=== PATIENT | female | born 1945 | race Caucasian/White ===

== ENCOUNTER 2017-04-15 10:31 | Emergency (ER) | payer MEDICARE, OTHER, MEDICAID ==
[2017-04-15 12:37] LABS: URINE BLOOD (Dip) POC Negative (NEGATIVE); URINE GLUCOSE (Dip) POC Negative (NEGATIVE); URINE KETONES (Dip) POC Negative (NEGATIVE); URINE LEUKOCYTE EST (Dip) POC Negative (NEGATIVE); URINE NITRITE (Dip) POC Negative (NEGATIVE); URINE TOTAL PROTEIN POC Negative (NEGATIVE)
[2017-04-15 12:37] LABS: URINE PH (Dip) POC 5.5 (5.0-8.5)
[2017-04-15 13:00] LABS: ADD UMIC NO; UR ASCORBIC ACID NEGATIVE (NEGATIVE); UR BILIRUBIN (Dip) NEGATIVE (NEGATIVE); UR BLOOD (Dip) NEGATIVE (NEGATIVE); UR CLARITY CLEAR (CLEAR); UR COLOR STRAW (YELLOW); UR GLUCOSE (Dip) NEGATIVE (NEGATIVE); UR KETONES (Dip) NEGATIVE (NEGATIVE); UR LEUKOCYTE ESTERASE (Dip) NEGATIVE Leu/ul (NEGATIVE); UR NITRITE (Dip) NEGATIVE (NEGATIVE); UR SPECIFIC GRAVITY (Dip) 1.009 (1.003-1.030); UR TOTAL PROTEIN (Dip) NEGATIVE (NEGATIVE); UR UROBILINOGEN (Dip) NEGATIVE (NEGATIVE)
== END 2017-04-15 13:25 | disposition home or self-care (01) ==
LOC: FTE 10:31
DX: B37.9 Candidiasis, unspecified (principal)
CPT/HCPCS: 81003; 87086; 99284

== ENCOUNTER 2017-10-04 13:29 | Emergency (ER) | payer MEDICARE, OTHER ==
[2017-10-04] MEDS: ACETAMINOPHEN 500 MG TAB PO (14:46)
[2017-10-04] MEDS: IBUPROFEN 200 MG TAB PO (14:48)
== END 2017-10-04 15:33 | disposition home or self-care (01) ==
LOC: FTE 13:29
DX: S09.90XA Unspecified injury of head, initial encounter (principal); R51 Headache; W18.39XA Other fall on same level, initial encounter; Y92.9 Unspecified place or not applicable
CPT/HCPCS: 70450; 73060-RT; 99284-25

== ENCOUNTER 2018-03-12 09:39 | Day surgery (SDC) | payer MEDICARE, OTHER ==
[2018-03-12] MEDS ORDERED: PROPOFOL 20 ML (10:37)
== END 2018-03-12 13:45 | disposition home or self-care (01) ==
LOC: GIL 09:39
DX: R19.4 Change in bowel habit (principal); D12.5 Benign neoplasm of sigmoid colon; K64.8 Other hemorrhoids
CPT/HCPCS: 45380; 88305